=== PATIENT | female | born 1965 | race Asian ===

== ENCOUNTER → 2018-12-10 09:06 | Outpatient (CLI) | payer OTHER, MEDICAID, SELFPAY ==
--- NOTE | 2018-12-10 09:09 | DI.MG.S_ITS ---
BILATERAL DIGITAL SCREENING MAMMOGRAM 3D/2D WITH CAD: 12/10/2018 CLINICAL: Routine screening. Comparison is made to exams dated: 08/31/2015 mammogram and 07/16/2014 mammogram - [facility]. The tissue of both breasts is heterogeneously dense. This may lower the sensitivity of mammography. Current study was also evaluated with a Computer Aided Detection (CAD) system. No significant masses, calcifications, or other findings are seen in either breast. There has been no significant interval change. IMPRESSION: NEGATIVE There is no mammographic evidence of malignancy. A 1 year screening mammogram is recommended. This exam was interpreted at Station ID: [id number]. NOTE: For mammograms, a report in lay terms will be sent to the patient. Approximately 15% of breast malignancies will not be visualized mammographically. In the management of a palpable breast mass, a negative mammogram must not discourage biopsy of a clinically suspicious lesion. Electronically Signed By: Boni sneed/yolette:12/10/2018 19:25:29 copy to: Nasra Murrieta letter sent: Normal Exam ACR BI-RADS Category 1: Negative [id number]
== END ==
PROVIDERS: PCP Physician Assistant Medical; Visit Provider Obstetrics & Gynecology
DX: Z12.31 Encounter for screening mammogram for malignant neoplasm of breast (principal)
CPT/HCPCS: 77063; 77067

== ENCOUNTER 2021-09-18 11:18 | Emergency (ER) | payer OTHER, MEDICAID, SELFPAY ==
[2021-09-18 11:56] VITALS: BP 131/74; PULSE 52; RESP 16; TEMP 36.7; O2SAT 97; BMI 20.2
[2021-09-18 13:04] LABS: Add Manual Diff / Slide Review NO; Basophils Absolute Auto 100 /uL (0-100); Basophils Percent Auto 1.3 % (0-2); Eosinophils Absolute Auto 200 /uL (0-450); Eosinophils Percent Auto 3.6 % (2-4); Hematocrit 38.4 % (36-46); Hemoglobin 12.7 g/dL (12.0-16.0); Lymphocytes Absolute Auto 1800 /uL (1100-4500); Lymphocytes Percent Auto 29.3 % (25-40); Mean Corpuscular HGB Conc 33.2 % (30-36); Mean Corpuscular Hemoglobin 30.4 PG (26-34); Mean Corpuscular Volume 91.7 fL (80-100); Monocytes Absolute Auto 500 /uL (0-900); Monocytes Percent Auto 8.7 % (3-14); Neutrophils Absolute Auto 3600 /uL (1500-7000); Neutrophils Percent Auto 57.1 % (50-75); Platelet Count 312 X10^3/uL (150-400); Red Blood Cell Count 4.19 X10^6/uL (4.0-5.2); Red Cell Distribution Width 13.8 % (11.6-14.8); White Blood Cell Count 6.2 X10^3/uL (4.5-11.0)
[2021-09-18 13:11] LABS: Prothrombin Time 11.1 SECONDS (10.1-12.7)
[2021-09-18 13:13] LABS: PTT Partial Thromboplastin Tim 36 SECONDS (26.4-36.2)
[2021-09-18 13:19] LABS: Alanine Aminotransferase 16 IU/L (<35); Albumin Globulin Ratio 1.4 (1.0-2.8); Alkaline Phosphatase 95 U/L (38-126); Aspartate Aminotransferase 40 IU/L (14-36); BUN Creatinine Ratio 13.8 (6-22); Bilirubin Total 0.6 mg/dL (0.2-1.3); Blood Urea Nitrogen 11 mg/dL (7-17); Calcium 9.6 mg/dL (8.4-10.2); Carbon Dioxide 26 mmol/L (22-32); Chloride 105 mmol/L (98-107); Estimated Glomerular Filt Rate > 60 mL/min (>60); Globulin 3.6 g/dL (1.7-4.1); Glucose 90 mg/dL (70-100); Lipase 183 U/L (23-300); Potassium 4.4 mmol/L (3.4-5.1); Sodium 139 mmol/L (137-145); Total Protein 8.6 g/dL (6.3-8.2)
[2021-09-18 13:21] LABS: HEMOLYSIS 55 (0-50)
--- NOTE | 2021-09-18 13:52 | ED_ITS ---
HPI - Abdominal Pain <Roly Shannon PA-C - Last Filed: 09/18/21 19:49> General Chief Complaint: Abdominal Pain Stated Complaint: Rt side abd/groin pain, dizzy Time Seen by Provider: 09/18/21 12:56 History of Present Illness HPI narrative: Patient is a 56-year-old female who presents to the emergency department for evaluation abdominal pain. Patient states that over the past 5 days she has experienced right lower quadrant abdominal pain, stating that yesterday the pain worsened and began to radiate into right groin. Of note, patient denies any trauma or injury to the area that could explain her symptoms. Patient states that prior to the worsening of her pain yesterday she did experience a pain-free day. Patient also explains that her pain is worsened when she is lying supine and states that it is alleviated when she is ?up and moving around?. Patient denies any fever, chills, chest pain, cough, shortness of breath, nausea, vomiting, diarrhea, constipation, dysuria, hematuria, or any other concerning symptoms. Patient does endorse mild right-sided flank pain. No further concerns were voiced at this time. Related Data Home Medications Medication Instructions Recorded Confirmed [GARLIC TABLETS] Q DAY ##0 06/21/09 12/31/19 Lactobacillus acidophilus 1 tab PO QDAY ##0 07/16/16 12/31/19 magnesium 200 mg tablet 200 mg PO ##0 07/16/16 12/31/19 Previous Rx's Medication Instructions Recorded dicyclomine 10 mg capsule 10 mg PO TID #30 caps 09/18/21 Allergies Allergy/AdvReac Type Severity Reaction Status Date / Time clindamycin [CLINDAMYCIN] Allergy Unknown RASH Unverified 12/31/19 14:13 Review of Systems <Roly Shannon PA-C - Last Filed: 09/18/21 19:49> Constitutional Constitutional: Denies chills, Denies fatigue, Denies fever(s), Denies frequent falls, Denies lethargy and Denies weakness ENT Ears, Nose, Mouth, and Throat: Denies neck pain Cardiovascular Cardiovascular: Denies chest pain, Denies irregular heart rhythm, Denies lightheadedness, Denies palpitations, Denies dyspnea, Denies dyspnea on exertion and Denies orthopnea Respiratory Respiratory: Denies dyspnea and Denies dyspnea on exertion Gastrointestinal Gastrointestinal: Reports abdominal pain, Denies change in bowel habits, Denies diarrhea, Denies nausea and Denies vomiting Genitourinary Genitourinary: Denies hematuria, Reports flank pain (Right flank), Denies urinary incontinence, Denies urinary urgency and Reports other (Right groin pain) Musculoskeletal Musculoskeletal: Denies back pain, Denies muscle weakness, Denies neck pain, Denies numbness and Denies tingling Integumentary/Breasts Skin/Breast: Denies pruritus, Denies erythema, Denies rash and Denies wounds Neurologic Neurologic: Denies frequent falls, Denies numbness, Denies tingling and Denies weakness Endocrine Endocrine: Denies fatigue and Denies palpitations Patient History <Roly Shannon PA-C - Last Filed: 09/18/21 19:49> Medical History Menopause Family History Sister Age: 63 Aneurysm Social History Smoking Status: Never smoker Smoking Status: Never smoker Exam <Roly Shannon PA-C - Last Filed: 09/18/21 19:49> Narrative Exam Narrative: GENERAL: 56 year old patient appears stated age. Well-developed patient, in no acute distress. HEAD: Atraumatic. Normocephalic. EYES: Pupils equal round and reactive. Extraocular motions intact. No scleral icterus. No injection or drainage. ENT: Nose without bleeding, purulent drainage. Throat without erythema, tonsillar hypertrophy or exudate. Airway patent. NECK: Trachea midline. Non tender CARDIOVASCULAR: Regular rate and rhythm without murmurs, gallops, or rubs. RESPIRATORY: Clear to auscultation. Breath sounds equal bilaterally. No wheezes, rales, or rhonchi. GASTROINTESTINAL: Abdomen soft, nondistended. Tenderness to palpation appreciated along the right lower quadrant of the abdomen without any rebound or guarding. No overlying masses, erythema, or ecchymosis noted. Negative psoas sign. Negative Resendiz sign. No ecchymosis noted over the navel. EXTREMITIES: No edema or joint tenderness. BACK: Nontender without deformity or crepitance. No flank tenderness. No ecchymosis noted over the flanks bilaterally. NEURO: AOx3. SKIN: No rash or erythema of visible areas Initial Vital Signs Initial Vital Signs: Vital Signs Temperature 98.1 F 09/18/21 11:56 Pulse Rate 52 L 09/18/21 11:56 Respiratory Rate 16 09/18/21 11:56 Blood Pressure 131/74 09/18/21 11:56 Pulse Oximetry 97 09/18/21 11:56 Oxygen Delivery Method 09/18/21 11:56 <Aleena Hylton MD - Last Filed: 09/19/21 07:55> Initial Vital Signs Initial Vital Signs: Vital Signs Temperature 98.1 F 09/18/21 11:56 Pulse Rate 52 L 09/18/21 11:56 Respiratory Rate 16 09/18/21 11:56 Blood Pressure 131/74 09/18/21 11:56 Pulse Oximetry 97 09/18/21 11:56 Oxygen Delivery Method 09/18/21 11:56 Course <Roly Shannon PA-C - Last Filed: 09/18/21 19:49> Course Course Narrative: CBC, CMP, lipase, PT/INR, PTT, EKG, urine dip ordered. Lab studies within normal limits, CT of the abdomen and pelvis with IV contrast ordered. CT did not show signs of acute abnormality. Orders Ordered: ED Orders 09/18/21 11:58 EKG-12 Lead Stat 09/18/21 12:44 Complete Blood Count AUTO DIFF Stat Comprehensive Metabolic Panel Stat Lipase Stat Partial Thromboplastin Time Stat Prothrombin Time INR Stat 09/18/21 14:19 CT abdomen pelvis w con Stat Vital Signs Vital signs: Vital Signs - 8 hr 09/18/21 11:56 09/18/21 14:01 09/18/21 15:13 Temperature 98.1 F Pulse Rate 52 L 50 L 60 Respiratory Rate 16 18 18 Blood Pressure 131/74 117/67 Pulse Oximetry 97 99 99 Oxygen Delivery Method Room Air Room Air <Aleena Hylton MD - Last Filed: 09/19/21 07:55> Orders Ordered: ED Orders 09/18/21 11:58 EKG-12 Lead Stat 09/18/21 12:44 Complete Blood Count AUTO DIFF Stat Comprehensive Metabolic Panel Stat Lipase Stat Partial Thromboplastin Time Stat Prothrombin Time INR Stat 09/18/21 14:19 CT abdomen pelvis w con Stat Vital Signs Vital signs: Vital Signs - 8 hr 09/18/21 11:56 09/18/21 14:01 09/18/21 15:13 Temperature 98.1 F Pulse Rate 52 L 50 L 60 Respiratory Rate 16 18 18 Blood Pressure 131/74 117/67 Pulse Oximetry 97 99 99 Oxygen Delivery Method Room Air Room Air MDM - Abdominal Pain <Roly Shannon PA-C - Last Filed: 09/18/21 19:49> Lab Data Result diagrams: 09/18/21 12:44 09/18/21 12:44 Labs: Lab Results 09/18/21 09/18/21 09/18/21 Range/Units 12:44 12:44 12:44 WBC 6.2 (4.5-11.0) X10^3/uL RBC 4.19 (4.0-5.2) X10^6/uL Hgb 12.7 (12.0-16.0) g/dL Hct 38.4 (36-46) % MCV 91.7 (80-100) fL MCH 30.4 (26-34) PG MCHC 33.2 (30-36) % RDW 13.8 (11.6-14.8) % Plt Count 312 (150-400) X10^3/uL Neut % (Auto) 57.1 (50-75) % Lymph % (Auto) 29.3 (25-40) % [place] % (Auto) 8.7 (3-14) % Eos % (Auto) 3.6 (2-4) % Baso % (Auto) 1.3 (0-2) % Neut # (Auto) 3600 (9006-5819) /uL Lymph # (Auto) 1800 (4704-7159) /uL [place] # (Auto) 500 (0-900) /uL Eos # (Auto) 200 (0-450) /uL Baso # (Auto) 100 (0-100) /uL PT 11.1 (10.1-12.7) SECONDS INR 1.0 (0.9-1.3) APTT 36 (26.4-36.2) SECONDS Sodium 139 (137-145) mmol/L Potassium 4.4 (3.4-5.1) mmol/L Chloride 105 (98-107) mmol/L Carbon Dioxide 26 (22-32) mmol/L BUN 11 (7-17) mg/dL Creatinine 0.80 (0.52-1.04) mg/dL Estimated GFR > 60 (>60) mL/min BUN/Creatinine Ratio 13.8 (6-22) Glucose 90 (70-100) mg/dL Calcium 9.6 (8.4-10.2) mg/dL Total Bilirubin 0.6 (0.2-1.3) mg/dL AST 40 H (14-36) IU/L ALT 16 (<35) IU/L Alkaline Phosphatase 95 (38-126) U/L Total Protein 8.6 H (6.3-8.2) g/dL Albumin 5.0 (3.5-5.0) g/dL Globulin 3.6 (1.7-4.1) g/dL Albumin/Globulin Ratio 1.4 (1.0-2.8) Lipase 183 (23-300) U/L Point of care testing: Urine Dip Bedside Urine Glucose Negative Bedside Urine Bilirubin - Negative Bedside Urine Ketone - Negative Urine Specific [place] 1.010 Bedside Urine Occult Blood - Negative Bedside Urine pH 6.5 Bedside Urine Protein - Negative Bedside Urine Urobilinogen - Negative Bedside Urine Nitrite - Negative Bedside Urine Leukocytes - Negative Esterase Imaging Data CT scan - abdomen/pelvis: Radiologist's Impression: PROCEDURE:? CT ABDOMEN PELVIS W CON ? INDICATIONS:? Right lower quadrant abdominal pain ? TECHNIQUE:? After the administration of intravenous contrast, axial sections acquired from the lung bases to the pubic symphysis.? Coronal and sagittal reformats were performed.? For radiation dose reduction, the following was used:? automated exposure control, adjustment of mA and/or kV according to patient size.? ? COMPARISON:? None. ? FINDINGS:? Image quality:? Excellent.? ? Lung bases:? Unremarkable. Heart:? No significant findings. ? ABDOMEN: Liver:? Unremarkable.? ? Gallbladder:? Unremarkable.? ? Biliary ducts:? Unremarkable.? ? Pancreas:? Unremarkable.? ? Spleen:? Unremarkable.? ? Adrenal Glands:? Unremarkable.? ? Kidneys and Ureters:? Unremarkable.? ? ? Stomach and Bowel:? Stomach, small bowel loops, and colon are unremarkable.? Normal appendix. Peritoneum:? No abnormal intraperitoneal fluid.? No free air.? ? Ventral Wall: ? No hernias.? Abdominal Nodes:? No retroperitoneal or mesenteric adenopathy by size criteria.? Vessels:? Aorta and inferior vena cava are normal in size.? ? PELVIS: Pelvic Organs:? Unremarkable.? ? Bladder:? Unremarkable.? ? Pelvic Nodes: No enlarged lymph nodes.? Miscellaneous: No hernias are seen. ? ? ? Bones:? Unremarkable.? IMPRESSION:? 1. No acute process. 2. Normal appendix.? ? ? Dictated by: Jenna Ayala M.D. on 09/18/2021 at 14:38 ? ? Approved by: Jenna Ayala M.D. on 09/18/2021 at 14:49 ? MDM Narrative Medical decision making narrative: Differential diagnosis to consider but not limited to nephrolithiasis versus ureterolithiasis versus hydronephrosis versus appendicitis versus colitis versus constipation. I discussed results of lab studies and imaging with patient and informed them that no acute abnormality was identified today that would require emergent intervention or admission to the hospital. I informed the patient I would be sending home with medications to help alleviate her discomfort. I urged her to follow up with primary care for further evaluation and management. She expresses understanding and agrees to plan. Strict return precautions were discussed with the patient prior to discharge. <Aleena Hylton MD - Last Filed: 09/19/21 07:55> Lab Data Labs: Lab Results 09/18/21 09/18/21 09/18/21 Range/Units 12:44 12:44 12:44 WBC 6.2 (4.5-11.0) X10^3/uL RBC 4.19 (4.0-5.2) X10^6/uL Hgb 12.7 (12.0-16.0) g/dL Hct 38.4 (36-46) % MCV 91.7 (80-100) fL MCH 30.4 (26-34) PG MCHC 33.2 (30-36) % RDW 13.8 (11.6-14.8) % Plt Count 312 (150-400) X10^3/uL Neut % (Auto) 57.1 (50-75) % Lymph % (Auto) 29.3 (25-40) % [place] % (Auto) 8.7 (3-14) % Eos % (Auto) 3.6 (2-4) % Baso % (Auto) 1.3 (0-2) % Neut # (Auto) 3600 (6360-9096) /uL Lymph # (Auto) 1800 (2505-0345) /uL [place] # (Auto) 500 (0-900) /uL Eos # (Auto) 200 (0-450) /uL Baso # (Auto) 100 (0-100) /uL PT 11.1 (10.1-12.7) SECONDS INR 1.0 (0.9-1.3) APTT 36 (26.4-36.2) SECONDS Sodium 139 (137-145) mmol/L Potassium 4.4 (3.4-5.1) mmol/L Chloride 105 (98-107) mmol/L Carbon Dioxide 26 (22-32) mmol/L BUN 11 (7-17) mg/dL Creatinine 0.80 (0.52-1.04) mg/dL Estimated GFR > 60 (>60) mL/min BUN/Creatinine Ratio 13.8 (6-22) Glucose 90 (70-100) mg/dL Calcium 9.6 (8.4-10.2) mg/dL Total Bilirubin 0.6 (0.2-1.3) mg/dL AST 40 H (14-36) IU/L ALT 16 (<35) IU/L Alkaline Phosphatase 95 (38-126) U/L Total Protein 8.6 H (6.3-8.2) g/dL Albumin 5.0 (3.5-5.0) g/dL Globulin 3.6 (1.7-4.1) g/dL Albumin/Globulin Ratio 1.4 (1.0-2.8) Lipase 183 (23-300) U/L Point of care testing: Urine Dip Bedside Urine Glucose Negative Bedside Urine Bilirubin - Negative Bedside Urine Ketone - Negative Urine Specific [place] 1.010 Bedside Urine Occult Blood - Negative Bedside Urine pH 6.5 Bedside Urine Protein - Negative Bedside Urine Urobilinogen - Negative Bedside Urine Nitrite - Negative Bedside Urine Leukocytes - Negative Esterase Discharge Plan Departure Patient Disposition: Home Clinical Impression: Abdominal pain Instructions: DI for Abdominal Pain-Adult Activity Restrictions/Additional Instructions: *You have been diagnosed with abdominal pain *What to do: *Please continue to take your regular medications as directed. [X] New medication prescriptions sent to your pharmacy: [facility] [ ] New medication written as a paper prescription [ ] No new medications given You were evaluated in the emergency department today for abdominal pain. Lab st udies and imaging obtained in the emergency department today were within normal limits. There is no signs of infection or complications that would require surgical intervention or admission to the hospital. I have prescribed you a course of medications to help alleviate your discomfort. I recommend following up with the primary care provider within the next few days for further evaluation and management. Please do not hesitate to return to the emergency department if you experience worsening pain, fever, blood in your urine, or any other concerning symptoms. *Please follow up with your primary care provider in 2-3 days, call for an appointment. Let them know you were seen in the Emergency Department and that we ask that you be seen in follow up. We will electronically transmit a record of today's note if your PCP is in our system *If you do not have a primary care provider please contact the [facility] Resource line at [phone]. They will ask some questions about your medical history and help get you set up with a doctor in the community. *Return to Emergency Department if you should have any new, worsening or concerning symptoms, such as fever greater than 101 F, shaking chills, worsening pain, persistent vomiting or other bothersome symptoms. Prescriptions: New dicyclomine 10 mg capsule 10 mg PO TID Qty: 30 0RF No Action [GARLIC TABLETS] Q DAY Qty: 0 Lactobacillus acidophilus 1 EACH capsule 1 tab PO QDAY Qty: 0 magnesium 200 MG tablet 200 mg PO Qty: 0 Referrals: Sanjeev Gann MD [Primary Care Provider] - Visit Report Forms: Patient Portal/API <Aleena Hylton MD - Last Filed: 09/19/21 07:55> Cosign ED Attending Coselenaature Attestation: I was immediately available in the department for consultation throughout this patient's visit. I agree with documentation as above. Aleena Hylton MD
[2021-09-18 14:01] VITALS: BP 117/67; PULSE 50; RESP 18; O2SAT 99
--- NOTE | 2021-09-18 14:19 | DI.CT.S_ITS ---
PROCEDURE: CT ABDOMEN PELVIS W CON INDICATIONS: Right lower quadrant abdominal pain TECHNIQUE: After the administration of intravenous contrast, axial sections acquired from the lung bases to the pubic symphysis. Coronal and sagittal reformats were performed. For radiation dose reduction, the following was used: automated exposure control, adjustment of mA and/or kV according to patient size. COMPARISON: None. FINDINGS: Image quality: Excellent. Lung bases: Unremarkable. Heart: No significant findings. ABDOMEN: Liver: Unremarkable. Gallbladder: Unremarkable. Biliary ducts: Unremarkable. Pancreas: Unremarkable. Spleen: Unremarkable. Adrenal Glands: Unremarkable. Kidneys and Ureters: Unremarkable. Stomach and Bowel: Stomach, small bowel loops, and colon are unremarkable. Normal appendix. Peritoneum: No abnormal intraperitoneal fluid. No free air. Ventral Wall: No hernias. Abdominal Nodes: No retroperitoneal or mesenteric adenopathy by size criteria. Vessels: Aorta and inferior vena cava are normal in size. PELVIS: Pelvic Organs: Unremarkable. Bladder: Unremarkable. Pelvic Nodes: No enlarged lymph nodes. Miscellaneous: No hernias are seen. Bones: Unremarkable. IMPRESSION: 1. No acute process. 2. Normal appendix. Dictated by: Jenna Ayala M.D. on 09/18/2021 at 14:38 Approved by: Jenna Ayala M.D. on 09/18/2021 at 14:49
[2021-09-18 15:13] VITALS: PULSE 60; RESP 18; O2SAT 99
== END 2021-09-18 15:15 | disposition home or self-care (01) ==
PROVIDERS: Emergency Medicine; Emergency Provider Physician Assistant; PCP Family Medicine
DX: R10.31 Right lower quadrant pain (principal)
CPT/HCPCS: 36415; 74177; 80053; 81003; 83690; 85025; 85610; 85730; 93005; 99284

== ENCOUNTER → 2021-11-07 14:25 | Outpatient (CLI) | payer OTHER, MEDICAID, SELFPAY | PROVIDERS: Visit Provider Nurse Practitioner Critical Care Medicine | DX: L72.0 Epidermal cyst (principal) | CPT/HCPCS: 87070; 87075; 87077; 87205 ==

== ENCOUNTER 2021-11-15 10:06 | Emergency (ER) | payer OTHER, MEDICAID, SELFPAY ==
[2021-11-15 10:38] VITALS: BP 117/65; PULSE 61; RESP 18; TEMP 36.5; O2SAT 100; BMI 23.8
--- NOTE | 2021-11-15 12:58 | ED.SKABFB ---
HPI - Skin/Abscess/Foreign Bdy <CARLTON Durán - Last Filed: 11/15/21 13:06> General Chief complaint: Skin/Abscess/Foreign Body Stated complaint: Cyst on back causing pain Time Seen by Provider: 11/15/21 11:52 Source: patient Mode of arrival: Family Vehicle Limitations: no limitations History of Present Illness HPI narrative: 56-year-old female, nonsmoker, presents to the emergency department with worsening abscess on left upper back. Patient has dealt with abscesses on and off over the last couple of years and usually drain that at home by herself or by her partner. Patient was seen at walk-in clinic last week and 1 of the 2 abscesses was drained with a needle. Patient completed 7 days of doxycycline and has been applying mupirocin ointment as directed. Wound culture revealed Gram-positive cocci and no sensitivities provided. Related Data Home Medications Medication Instructions Recorded Confirmed [GARLIC TABLETS] Q DAY ##0 06/21/09 11/07/21 Lactobacillus acidophilus 1 tab PO QDAY ##0 07/16/16 11/07/21 magnesium 200 mg tablet 200 mg PO ##0 07/16/16 11/07/21 Previous Rx's Medication Instructions Recorded dicyclomine 10 mg capsule 10 mg PO TID #30 caps 09/18/21 mupirocin 2 % topical ointment 1 applic topical BID PRN open 11/07/21 wound #15 grams Allergies Allergy/AdvReac Type Severity Reaction Status Date / Time clindamycin [CLINDAMYCIN] Allergy Unknown RASH Verified 11/15/21 10:38 Review of Systems <CARLTON Durán - Last Filed: 11/15/21 13:06> Review of Systems Narrative: Narrative: GENERAL: Denies chills, fatigue, fever, sweats. See HPI HEENT: Denies sinus pain, ear pain, sore throat, difficulty swallowing, dizziness. RESPIRATORY: Denies dyspnea, cough, wheezing, sputum. CARDIOVASCULAR: Denies chest pain, palpitations, edema. GASTROINTESTINAL: Denies nausea, vomiting, abdominal pain, diarrhea, constipation. : Denies dysuria, frequency, incontinence, hematuria, urinary retention, flank pain. MSK: Denies weakness, joint pain, or bony pain. SKIN: Endorses abscesses left upper back that are red, warm and painful. NEUROLOGIC: Denies weakness, dizziness, headache, numbness, confusion. PSYCHIATRIC: No concerning psychosocial issues. Patient History <CARLTON Durán - Last Filed: 11/15/21 13:06> Medical History Menopause Family History Sister Age: 63 Aneurysm Social History Smoking Status: Never smoker Smoking Status: Never smoker alcohol intake frequency: 0-2 drinks per day Substance Use Type: does not use Exam <CARLTON Durán - Last Filed: 11/15/21 13:06> Narrative Exam Narrative: Exam Narrative: GENERAL: This is a well-nourished, well-developed patient, in no acute distress HEAD: Atraumatic. Normocephalic. MSK: Moves all extremities. Normal range of motion, no clubbing or edema. Neurovascularly intact. NEURO: A&O x 3. SKIN: 5 cm x 7.5 cm area on left upper back/midline that is red, warm, swollen and painful to palpation. Fluctuance noted. No active drainage or red streaking noted. Initial Vital Signs Initial Vital Signs: Vital Signs Temperature 97.7 F 11/15/21 10:38 Pulse Rate 61 11/15/21 10:38 Respiratory Rate 18 11/15/21 10:38 Blood Pressure 117/65 11/15/21 10:38 Pulse Oximetry 100 11/15/21 10:38 Oxygen Delivery Method 11/15/21 10:38 Reviewed <Radha Pino DO - Last Filed: 11/15/21 21:08> Initial Vital Signs Initial Vital Signs: Vital Signs Temperature 97.7 F 11/15/21 10:38 Pulse Rate 61 11/15/21 10:38 Respiratory Rate 18 11/15/21 10:38 Blood Pressure 117/65 11/15/21 10:38 Pulse Oximetry 100 11/15/21 10:38 Oxygen Delivery Method 11/15/21 10:38 Procedures <CARLTON Durán - Last Filed: 11/15/21 13:06> Abscess I/D I&D #1: Site: back Side (if applicable): left Sedation/analgesia: none Local Anesthetic: lidocaine 1% Amount of anesthesia used (mL): 4 Technique: incised with #11 blade Amount of fluid expressed (mL): 10 Irrigation: Yes Packing used?: plain Course <CARLTON Durán - Last Filed: 11/15/21 13:06> Orders Ordered: Discontinued Medications Diphtheria/Tetanus/Acell Pertussis (Tet,Diph,Pertuss(Acell),Vac/Pf 0.5 Ml Syringe) 0.5 ml IM .ONCE ONE Stop: 11/15/21 13:31 Last Admin: 11/15/21 13:33 Dose: 0.5 ml Documented By: JORDAN Lidocaine HCl (Lidocaine 1% (Pf) 5 Ml) 1 ml SUBCUT NOW ONE Stop: 11/15/21 12:31 Last Admin: 11/15/21 13:33 Dose: 1 ml Documented By: JORDAN Vital Signs Vital signs: Vital Signs - 8 hr 11/15/21 10:38 Temperature 97.7 F Pulse Rate 61 Respiratory Rate 18 Blood Pressure 117/65 Pulse Oximetry 100 Oxygen Delivery Method Room Air <Radha Pino DO - Last Filed: 11/15/21 21:08> Orders Ordered: Discontinued Medications Diphtheria/Tetanus/Acell Pertussis (Tet,Diph,Pertuss(Acell),Vac/Pf 0.5 Ml Syringe) 0.5 ml IM .ONCE ONE Stop: 11/15/21 13:31 Last Admin: 11/15/21 13:33 Dose: 0.5 ml Documented By: JORDAN Lidocaine HCl (Lidocaine 1% (Pf) 5 Ml) 1 ml SUBCUT NOW ONE Stop: 11/15/21 12:31 Last Admin: 11/15/21 13:33 Dose: 1 ml Documented By: KF Vital Signs Vital signs: Vital Signs - 8 hr 11/15/21 10:38 Temperature 97.7 F Pulse Rate 61 Respiratory Rate 18 Blood Pressure 117/65 Pulse Oximetry 100 Oxygen Delivery Method Room Air MDM - Skin/Abscess/Foreign Bdy <CARLTON Durán - Last Filed: 11/15/21 13:06> Differential Diagnosis Differential diagnosis: Likely abscess of skin or subcutaneous tissue MDM Narrative Medical decision making narrative: 56-year-old female with abscess on left upper back was cleansed, anesthetized and drained. Expressed copious amounts of thick, purulent exudate. Packing placed x2 and instructed for patient and partner to remove in 24 hours. Recommended warm compresses and dressing changes as needed. Patient just completed 7 days of antibiotic therapy. Reiterated the importance of seeing Dermatology, that will accept her insurance. Updated her tetanus status. Discussed plan of care and return precautions with patient and partner, who were agreeable with course of action. Discharge Plan Departure Patient Disposition: Home Clinical Impression: Abscess Instructions: DI for Skin Abscess Activity Restrictions/Additional Instructions: *You have been diagnosed with abscess of your left upper back. I was able to drain it of copious amounts of pus. I have left in the 2 drains that you can remove in 24 hours. Please continue with compresses twice daily and change the dressing as needed. We have updated your tetanus status. You have a active referral for Dermatology. You should be able to contact your insurance company as to which dermatologists will accept your insurance. For any worsening symptoms, please follow-up with your family doctor or return to the emergency department. *What to do: *Please continue to take your regular medications as directed. [ ] New medication prescriptions sent to your pharmacy: [ ] [ ] New medication written as a paper prescription [x ] No new medications given *Please follow up with your primary care provider in 2-3 days, call for an appointment. Let them know you were seen in the Emergency Department and that we ask that you be seen in follow up. We will electronically transmit a record of today's note if your PCP is in our system *If you do not have a primary care provider please contact the [facility] Resource line at [phone]. They will ask some questions about your medical history and help get you set up with a doctor in the community. ? Return to ER if you should have any new, worsening or concerning symptoms, such as worsening pain, severe headache, confusion, chest pain, difficulty breathing, fever greater than 101 F, shaking chills, persistent vomiting to the point that you cannot drink fluids, or other new or worsening symptoms. Prescriptions: No Action mupirocin 2 % ointment 1 applic topical BID PRN (Reason: open wound) Qty: 15 0RF [GARLIC TABLETS] Q DAY Qty: 0 Lactobacillus acidophilus 1 EACH capsule 1 tab PO QDAY Qty: 0 magnesium 200 MG tablet 200 mg PO Qty: 0 dicyclomine 10 mg capsule 10 mg PO TID Qty: 30 0RF Referrals: Sanjeev Gann MD [Primary Care Provider] - Visit Report Forms: Patient Portal/API <Radha Pino DO - Last Filed: 11/15/21 21:08> Cosign ED Attending Elianeature Attestation: I was immediately available in the department for consultation. Documentation has been reviewed. I agree with assessment and plan.
[2021-11-15] MEDS: LIDOCAINE 1% (PF) 5 ML 1 ML SUBCUT (13:33)
[2021-11-15] MEDS: TET,DIPH,PERTUSS(ACELL),VAC/PF 0.5 ML SYRINGE IM (13:33)
== END 2021-11-15 13:35 | disposition home or self-care (01) ==
PROVIDERS: Emergency Provider Registered Nurse; PCP Family Medicine
DX: L02.212 Cutaneous abscess of back [any part, except buttock and flank] (principal); Z23 Encounter for immunization
CPT/HCPCS: 10060; 90471; 99283; 90715

== ENCOUNTER → 2022-06-09 09:50 | Outpatient (CLI) | payer OTHER, MEDICAID, SELFPAY ==
--- NOTE | 2022-06-09 09:53 | DI.MG.S_ITS ---
BILATERAL DIGITAL SCREENING MAMMOGRAM 3D/2D WITH CAD: 06/09/2022 CLINICAL: Routine screening. Comparison is made to exam dated: 12/10/2018 mammogram - [facility]. Both breasts are heterogeneously dense, which may obscure small masses (category c / 51-75% glandular tissue). Current study was also evaluated with a Computer Aided Detection (CAD) system. No significant masses, calcifications, or other findings are seen in either breast. There has been no significant interval change. IMPRESSION: NEGATIVE There is no mammographic evidence of malignancy. A 1 year screening mammogram is recommended. Based on the Tyrer Cuzick model (a risk assessment model) the patient's lifetime risk is 14.8% and her 10 year risk is 5.5%. According to the ACR, ACS, and NCCN guidelines, an annual breast MRI exam along with mammogram is recommended if the patient's lifetime risk is 20% or greater. This exam was interpreted at Station ID: [id number]. NOTE: For mammograms, a report in lay terms will be sent to the patient. Approximately 15% of breast malignancies will not be visualized mammographically. In the management of a palpable breast mass, a negative mammogram must not discourage biopsy of a clinically suspicious lesion. Electronically Signed By: Boni sneed/yolette:06/11/2022 08:35:00 copy to: Nasra Murrieta letter sent: Normal Exam ACR BI-RADS Category 1: Negative [id number]
[2022-06-09 12:15] LABS: Cholesterol 231 mg/dL (140-199); HDL Cholesterol 92 mg/dL (40-60); LDL Cholesterol Calculated 118 mg/dL (<100); Magnesium 2.2 mg/dL (1.6-2.3); Triglycerides 103 mg/dL (35-150)
[2022-06-09 12:21] LABS: TSH w/ Reflex to FT4 2.93 uIU/mL (0.47-4.68)
[2022-06-09 12:32] LABS: Vitamin D 25 Hydroxy (D3) 45.2 ng/mL (30.0-100.0)
== END ==
PROVIDERS: PCP Family Medicine; Referring Provider Family Medicine; Visit Provider Family Medicine
DX: Z12.31 Encounter for screening mammogram for malignant neoplasm of breast (principal); E55.9 Vitamin D deficiency, unspecified; K58.9 Irritable bowel syndrome, unspecified; E78.89 Other lipoprotein metabolism disorders; Z78.0 Asymptomatic menopausal state
CPT/HCPCS: 36415; 77063; 77067; 80061; 82306; 83735; 84443

== ENCOUNTER → 2024-07-03 08:21 | Outpatient (CLI) | payer OTHER, SELFPAY ==
[2024-07-03 08:47] LABS: Add Manual Diff / Slide Review NO; Basophils Absolute Auto 0 /uL (0-100); Basophils Percent Auto 0.8 % (0-2); Eosinophils Absolute Auto 200 /uL (0-450); Eosinophils Percent Auto 2.8 % (2-4); Hematocrit 39.9 % (36-46); Hemoglobin 13.4 g/dL (12.0-16.0); Lymphocytes Absolute Auto 2300 /uL (1100-4500); Lymphocytes Percent Auto 41.6 % (25-40); Mean Corpuscular HGB Conc 33.7 % (30-36); Mean Corpuscular Hemoglobin 30.8 PG (26-34); Mean Corpuscular Volume 91.4 fL (80-100); Monocytes Absolute Auto 500 /uL (0-900); Monocytes Percent Auto 9.3 % (3-14); Neutrophils Absolute Auto 2500 /uL (1500-7000); Neutrophils Percent Auto 45.5 % (50-75); Platelet Count 279 X10^3/uL (150-400); Red Blood Cell Count 4.36 X10^6/uL (4.0-5.2); Red Cell Distribution Width 13.8 % (11.6-14.8); White Blood Cell Count 5.5 X10^3/uL (4.5-11.0)
[2024-07-03 08:59] LABS: Alanine Aminotransferase 22 IU/L (<35); Albumin 4.8 g/dL (3.5-5.0); Albumin Globulin Ratio 1.5 (1.0-2.8); Alkaline Phosphatase 101 U/L (38-126); Aspartate Aminotransferase 38 IU/L (14-36); BUN Creatinine Ratio 16.9 (6-22); Bilirubin Total 0.6 mg/dL (0.2-1.3); Blood Urea Nitrogen 13 mg/dL (7-17); Calcium 9.8 mg/dL (8.4-10.2); Carbon Dioxide 24 mmol/L (22-32); Chloride 104 mmol/L (98-107); Cholesterol 277 mg/dL (140-199); Estimated Glomerular Filt Rate > 60 mL/min (>60); Globulin 3.3 g/dL (1.7-4.1); Glucose 104 mg/dL (80-110); HDL Cholesterol 107 mg/dL (40-60); HEMOLYSIS < 15 (0-50); LDL Cholesterol Calculated 148 mg/dL (<100); Sodium 137 mmol/L (137-145); Total Protein 8.1 g/dL (6.3-8.2); Triglycerides 112 mg/dL (35-150)
[2024-07-03 09:16] LABS: Vitamin D 25 Hydroxy (D3) 97.1 ng/mL (30.0-100.0)
[2024-07-03 09:32] LABS: TSH w/ Reflex to FT4 4.62 uIU/mL (0.47-4.68)
[2024-07-03 10:52] LABS: Creatinine Urine Random 15.64 mg/dL
[2024-07-03 10:57] LABS: Microalbumin Urine Random < 0.6 mg/dL (0-1.6)
== END ==
PROVIDERS: PCP Family Medicine; Referring Provider Family Medicine; Visit Provider Family Medicine
DX: Z00.00 Encounter for general adult medical examination without abnormal findings (principal); E78.5 Hyperlipidemia, unspecified; E55.9 Vitamin D deficiency, unspecified; Z78.0 Asymptomatic menopausal state; E78.89 Other lipoprotein metabolism disorders
CPT/HCPCS: 36415; 80053; 80061; 82043; 82306; 82570; 84443; 85025